=== PATIENT | female | born 1970 | race Caucasian/White ===

== ENCOUNTER 2023-04-09 08:05 | Emergency (ER) | payer MEDICAID ==
[~2023-04-09] VITALS: Ht 160 cm; Wt 70.5 kg
[2023-04-09 08:12] VITALS: BP 123/84
[2023-04-09] MEDS ORDERED: acetaminophen 325mg tablet PO ONE ×2 (08:55→09:15)
[2023-04-09] MEDS ORDERED: IBUP-1985 PO (10:18)
[2023-04-09] MEDS ORDERED: ACET650T58 PO (10:18)
== END 2023-04-09 10:47 | disposition home or self-care (01) ==
LOC: ER 08:06
DX: M54.9 Dorsalgia, unspecified (principal); E11.9 Type 2 diabetes mellitus without complications; Z88.1 Allergy status to other antibiotic agents; Z88.5 Allergy status to narcotic agent; Z79.899 Other long term (current) drug therapy; W19.XXXA Unspecified fall, initial encounter; Y93.89 Activity, other specified; Y92.89 Other specified places as the place of occurrence of the external cause; Y99.8 Other external cause status
CPT/HCPCS: 71100; 72131; 72192; 99284